=== PATIENT | female | born 2000 | race African-American/Black ===

== ENCOUNTER 2018-02-26 15:39 | Emergency (ER) | payer SELFPAY ==
--- NOTE | 2018-02-26 16:00 | ER Document Report ---
ED General - General Chief Complaint: Abdominal Pain Stated Complaint: ABDOMINAL CRAMPING Time Seen by Provider: 02/26/18 15:54 Mode of Arrival: Ambulatory Information source: Patient Notes: 17-year-old female presents with complaints of vaginal bleeding. Patient notes she has had vaginal bleeding for the past month on and off, she states that she used to be on oral control but then was switched to Depakote shot and since the Depakote has been having bleeding. Patient has not continued with the depression wishes to be placed back on oral contraceptives denies a history of migraine headaches TRAVEL OUTSIDE OF THE [place] IN LAST 30 DAYS: No - HPI Onset: Other - 1 month duration Onset/Duration: Intermittent Quality of pain: Cramping Severity: Mild Pain Level: 1 Associated symptoms: Other Exacerbated by: Denies Relieved by: Denies Similar symptoms previously: No Recently seen / treated by doctor: No - Related Data Allergies/Adverse Reactions: No Known Allergies Allergy (Verified 02/26/18 15:40) Past Medical History - Social History Smoking Status: Never Smoker Cigarette use (# per day): No Chew tobacco use (# tins/day): No Smoking Education Provided: No Family History: CVA, DM, Hyperlipidemia, Hypertension, Malignancy GI Medical History: Reports: Hx Gastroesophageal Reflux Disease - Immunizations Immunizations up to date: Yes Hx Diphtheria, Pertussis, Tetanus Vaccination: Yes Review of Systems - Review of Systems Notes: REVIEW OF SYSTEMS: CONSTITUTIONAL : Denies fever, chills, or sweats. Denies recent illness. EENT: Denies eye, ear, throat, or mouth pain or symptoms. Denies nasal or sinus congestion or discharge. Denies throat, tongue, or mouth swelling or difficulty swallowing. CARDIOVASCULAR: Denies chest pain. Denies palpitations or racing or irregular heart beat. Denies ankle edema. RESPIRATORY: Denies cough, cold, or chest congestion. Denies shortness of breath, difficulty breathing, or wheezing. GASTROINTESTINAL: Denies abdominal pain or distention. Denies nausea, vomiting , or diarrhea. Denies blood in vomitus, stools, or per rectum. Denies black, tarry stools. Denies constipation. GENITOURINARY: Denies difficulty urinating, painful urination, burning, frequency, blood in urine, or discharge. FEMALE GENITOURINARY: Admits vaginal bleeding cramping MUSCULOSKELETAL: Denies back or neck pain or stiffness. Denies joint pain or swelling. SKIN: Denies rash, lesions or sores. HEMATOLOGIC : Denies easy bruising or bleeding. LYMPHATIC: Denies swollen, enlarged glands. NEUROLOGICAL: Denies confusion or altered mental status. Denies passing out or loss of consciousness. Denies dizziness or lightheadedness. Denies headache. Denies weakness or paralysis or loss of use of either side. Denies problems with gait or speech. Denies sensory loss, numbness, or tingling. Denies seizures. PSYCHIATRIC: Denies anxiety or stress. Denies depression, suicidal ideation, or homicidal ideation. ALL OTHER SYSTEMS REVIEWED AND NEGATIVE. PHYSICAL EXAMINATION: GENERAL: Well-appearing, well-nourished and in no acute distress. HEAD: Atraumatic, normocephalic. EYES: Pupils equal round and reactive to light, extraocular movements intact, conjunctiva are normal. ENT: Nares patent, oropharynx clear without exudates. Moist mucous membranes. NECK: Normal range of motion, supple without lymphadenopathy LUNGS: Breath sounds clear to auscultation bilaterally and equal. No wheezes rales or rhonchi. HEART: Regular rate and rhythm without murmurs ABDOMEN: Soft, nontender, nondistended abdomen. No guarding, no rebound. No masses appreciated. Female : deferred Musculoskeletal: Normal range of motion, no pitting or edema. No cyanosis. NEUROLOGICAL: Cranial nerves grossly intact. Normal speech, normal gait. Normal sensory, motor exams PSYCH: Normal mood, normal affect. SKIN: Warm, Dry, normal turgor, no rashes or lesions noted. Dictation was performed using [employer] voice recognition software Physical Exam - Vital signs Vitals: Temp Pulse Resp BP Pulse Ox 98.9 F 86 18 137/88 H 100 02/26/18 15:44 02/26/18 15:44 02/26/18 15:44 02/26/18 15:44 02/26/18 15:44 Course - Re-evaluation Re-evalutation: 02/26/18 16:57 Patient used to be on Aviane, I will place her back on her meds since she has done well on this, ua for hcg pending Patient instructed on risks and benefits of medications prescribed. Denies any concerns regarding such. 02/26/18 16:58 HCG was negative After performing a Medical Screening Examination, I estimate there is LOW risk for ACUTE APPENDICITIS, BOWEL OBSTRUCTION, ACUTE CHOLECYSTITIS, PERFORATED DIVERTICULITIS, INCARCERATED HERNIA, PANCREATITIS, PELVIC INFLAMMATORY DISEASE, PERFORATED ULCER, ECTOPIC , or TUBO-OVARIAN ABSCESS, thus I consider the discharge disposition reasonable. Also, there is no evidence or peritonitis , sepsis, or toxicity. I have reevaluated this patient multiple times and no significant life threatening changes are noted. The patient and I have discussed the diagnosis and risks, and we agree with discharging home with close follow-up with the understanding that symptoms and presentations can change. We also discussed returning to the Emergency Department immediately if new or worsening symptoms occur. We have discussed the symptoms which are most concerning (e.g., bloody stool, fever, changing or worsening pain, vomiting) that necessitate immediate return. - Vital Signs Vital signs: Temp Pulse Resp BP Pulse Ox 98.9 F 86 18 137/88 H 100 02/26/18 15:44 02/26/18 15:44 02/26/18 15:44 02/26/18 15:44 02/26/18 15:44 - Laboratory Laboratory results interpreted by me: 02/26/18 16:17 Urine Blood LARGE H Urine Urobilinogen 2.0 H Discharge - Discharge Clinical Impression: Vaginal bleeding Condition: Stable Disposition: HOME, SELF-CARE Instructions: Vaginal Bleeding ([facility]) Prescriptions: Levonorgestrel-Ethin Estradiol [Aviane-28 Tablet] 1 each PO DAILY 90 Days tablet Referrals: MARCELLE DOBSON MD [Primary Care Provider] - Follow up as needed [facility] [Provider Group] - Follow up tomorrow
[2018-02-26 16:53] LABS: APPEARANCE,URINE CLEAR; BILIRUBIN,URINE NEGATIVE (NEGATIVE); COLOR,URINE YELLOW; GLUCOSE, URINE NEGATIVE (NEGATIVE); KETONES,URINE NEGATIVE (NEGATIVE); LEUKOCYTE ESTERASE,URINE NEGATIVE (NEGATIVE); NITRITE,URINE NEGATIVE (NEGATIVE); PROTEIN,URINE NEGATIVE (NEGATIVE)
[2018-02-26 17:11] VITALS: BP 122/74
== END 2018-02-26 17:24 | disposition home or self-care (01) ==
LOC: ER 15:39
DX: N93.9 Abnormal uterine and vaginal bleeding, unspecified (principal); R10.9 Unspecified abdominal pain
CPT/HCPCS: 81001; 81025; 99284

== ENCOUNTER 2019-08-26 14:15 | Emergency (ER) | payer SELFPAY ==
--- NOTE | 2019-08-26 14:54 | ER Document Report ---
ED Medical Screen (RME) - General Chief Complaint: Neck Swelling Stated Complaint: NECK LUMP Time Seen by Provider: 08/26/19 14:49 Notes: Patient is a 19-year-old female presents the emergency department with swelling noted to the anterior aspect of her neck. Voices she noticed the swelling on Thursday. She is denying any pain or injury. Patient denies any history of thyroid problems. Patient is denying any respiratory distress. GENERAL: Alert, interacts well. No acute distress. NECK: Full range of motion. Supple. Trachea midline. Significant swelling noted to the right thyroid. LUNGS: Clear to auscultation bilaterally, no wheezes, rales, or rhonchi. No respiratory distress. I have greeted and performed a rapid initial assessment of this patient. A comprehensive ED assessment and evaluation of the patient, analysis of test results and completion of the medical decision making process will be conducted by additional ED providers. I have specifically instructed the patient or family members with the patient to immediately return to any nursing staff should anything change in the patient's condition or with their chief complaint. This medical record was dictated with voice recognizing software. There may be grammatical, syntax errors that are unintended. TRAVEL OUTSIDE OF THE [place] IN LAST 30 DAYS: No - Related Data Allergies/Adverse Reactions: No Known Allergies Allergy (Verified 02/26/18 15:40) Past Medical History - Social History Chew tobacco use (# tins/day): No Frequency of alcohol use: Social Drug Abuse: None Renal/ Medical History: Denies: Hx Peritoneal Dialysis GI Medical History: Reports: Hx Gastroesophageal Reflux Disease - Immunizations Immunizations up to date: Yes Hx Diphtheria, Pertussis, Tetanus Vaccination: Yes Physical Exam - Vital signs Vitals: Temp Pulse Resp BP Pulse Ox 97.8 F 80 20 144/86 H 92 08/26/19 14:19 08/26/19 14:19 08/26/19 14:19 08/26/19 14:19 08/26/19 14:19 Course - Vital Signs Vital signs: Temp Pulse Resp BP Pulse Ox 97.8 F 80 20 144/86 H 92 08/26/19 14:19 08/26/19 14:19 08/26/19 14:19 08/26/19 14:19 08/26/19 14:19
[2019-08-26 16:00] LABS: FREE T3 3.54 pg/mL (2.77-5.27); FREE T4 (FREE THYROXINE) 0.86 ng/dL (0.78-2.19)
[2019-08-26 16:14] LABS: THYROID STIMULATING HORMONE 0.74 uIU/mL (0.47-4.68)
--- NOTE | 2019-08-26 16:49 | RADIOLOGY REPORT (SQ) ---
EXAM DESCRIPTION: U/S THYROID/SFT TISS HD NECK COMPLETED DATE/TIME: 08/26/2019 4:28 pm REASON FOR STUDY: swelling right of thyroid COMPARISON: None. TECHNIQUE: Dynamic and static martinez-scale images acquired of the thyroid gland. Selected additional c olor/power Doppler images recorded. All images stored to PACS. LIMITATIONS: None. FINDINGS: RIGHT LOBE: The right lobe of the thyroid gland measures 3.7 x 2.3 x 3.0 cm, normal size. A complex multi-septated 3.3 x 1.8 x 2.7 cm nodule occupies a large part of the right lobe of the t hyroid gland. Increased vascularity within the nodule and surrounding the nodule. LEFT LOBE: The left lobe of the thyroid gland measures 3.8 x 1.3 x 2.2 cm, normal size. A complex h ypoechoic septated nodule nodule measures 1.7 x 1.1 x 1.0 cm. ISTHMUS: The isthmus measures 2.8 mm in AP diameter, within the upper limits of normal size. Homoge neous echotexture. No cystic or solid masses. OTHER: No other significant finding. IMPRESSION: 1. A large complex dominant nodule in the right lobe of the thyroid gland as above. Co rrelation suggested. 2. Dominant complex nodule in the left lobe of the thyroid gland. Please see comments below. COMMENT: RECOMMENDATIONS FOR THYROID NODULES 1 CM OR LARGER Solitary nodules: Microcalcifications - FNA if 1 cm or greater. Solid or coarse calcification - FNA if 1.5 cm or greater. Mixed Solid/Cystic or Cystic with Mural Nodule - FNA if 2 cm or greater. None of the above but substantial growth since previous - FNA. Cystic with none of the above features and no significant growth - no FNA. Multiple nodules: Use above criteria for selection of nodules to FNA/biopsy. Biopsy probably not necessary in enlarged gland with multiple nodules of similar appearance. Abnormal lymph nodes - FNA/biopsy. Reference: Management of Thyroid Nodules Detected at [place]: Society of Radiologists in Ultrasound Consensus Stateme nt. Radiology 2005; 237:794-800 TECHNICAL DOCUMENTATION: JOB ID: [id number] [employer]- All Rights Reserved Reading location - IP/workstation name: [email or web address]
--- NOTE | 2019-08-26 18:23 | ER Document Report ---
HPI - HPI Time Seen by Provider: 08/26/19 14:49 Pain Level: Denies Notes: Patient is a 19-year-old female with no significant past medical history presents complaining of noticing a nodule to her lower anterior neck that is been present for the past couple days that she is aware of. She is able to eat and drink without difficulty. She has not had any trouble drooling or with hoarseness. Denies drug allergies. She has no other concerns or complaints. No history of thyroid disease in the past. She does not have any significant pain associated. Denies any headache, fever, neck pain, URI, sore throat, chest pain, palpitations, syncope, cough, shortness of breath, wheeze, dyspnea, abdominal pain, nausea/vomiting/diarrhea, urinary retention, dysuria, hematuria, or rash. - ROS Systems Reviewed and Negative: Yes All other systems reviewed and negative - REPRODUCTIVE Reproductive: DENIES: : Past Medical History - Social History Smoking Status: Never Smoker Chew tobacco use (# tins/day): No Frequency of alcohol use: Social Drug Abuse: None Family History: CVA, DM, Hyperlipidemia, Hypertension, Malignancy Patient has suicidal ideation: No Patient has homicidal ideation: No Renal/ Medical History: Denies: Hx Peritoneal Dialysis GI Medical History: Reports: Hx Gastroesophageal Reflux Disease - Immunizations Immunizations up to date: Yes Hx Diphtheria, Pertussis, Tetanus Vaccination: Yes Vertical Provider Document - CONSTITUTIONAL Agree With Documented VS: Yes Notes: PHYSICAL EXAMINATION: GENERAL: Well-appearing, well-nourished and in no acute distress. HEAD: Atraumatic, normocephalic. EYES: Pupils equal round and reactive to light, extraocular movements intact, sclera anicteric, conjunctiva are normal. ENT: Nares patent and without discharge. oropharynx clear without exudates. No tonsilar hypertrophy or erythema. Moist mucous membranes. No sinus tenderness. NECK: Normal range of motion. There is a cystic mass most notable to the rt thyroid area and a smaller to the left. Somewhat moveable. LUNGS: Breath sounds clear to auscultation bilaterally and equal. No wheezes rales or rhonchi. HEART: Regular rate and rhythm without murmurs, rubs, gallops. Musculoskeletal: FROM to passive/active. Strength 5+/5. Extremities: No cyanosis, clubbing, or edema b/l. Peripheral pulses 2+. Capillary refill less than 3 seconds. NEUROLOGICAL: Cranial nerves grossly intact. Normal speech, normal gait. PSYCH: Normal mood, normal affect. SKIN: Warm, Dry, normal turgor, no rashes or lesions noted. - INFECTION CONTROL TRAVEL OUTSIDE OF THE [place] IN LAST 30 DAYS: No Course - Re-evaluation Re-evalutation: 08/26/19 18:23 I did review with Dr. Loving who is in agreement with disposition and plan. Patient is an afebrile, well-hydrated, 19-year-old female who presents with complex multiseptated dominant nodule right thyroid as well as another smaller nodule to the left thyroid. Vitals are otherwise acceptable without significant tachycardia, tachypnea, hypoxia. PE is otherwise unremarkable. Patient is nontoxic-appearing and is tolerating p.o. without difficulty. She has not had any hoarseness or drooling. There is no evidence of airway compromise. Low suspicion for any meningitis, sepsis, peritonsillar/pharyngeal abscess, Darron's, or other emergent systemic condition at this time. Patient is aware this condition can change from initial presentation and she needs to monitor symptoms closely. I did review that she needs to have close follow-up for this issue as worse case scenario is metastasis/cancer. Conservative measures otherwise for symptoms. Recheck with your PCM in 2-3 days. Schedule an appointment with ENT/general surgery for probable fine-needle aspiration. Return to the ED with any worsening/concerning symptoms otherwise as reviewed in discharge. Patient is in agreement. - Vital Signs Vital signs: Temp Pulse Resp BP Pulse Ox 97.8 F 80 20 144/86 H 92 08/26/19 14:19 08/26/19 14:19 08/26/19 14:19 08/26/19 14:19 08/26/19 14:19 Discharge - Discharge Clinical Impression: Multiple thyroid nodules Condition: Stable Disposition: HOME, SELF-CARE Additional Instructions: As reviewed, thyroid nodules can be benign or could be cancerous which is why it is important to follow-up. You may be looking at getting a fine-needle aspiration performed by either the ENT provider or general surgeon. Maintain adequate fluid intake tylenol/ibuprofen as needed Monitor closely F/u: with your PCM in 2-3 days for a recheck Schedule consult with ENT/General surgeon for further evaluation and management* Return to the ED with any fever, Headaches, worsening pain, chest pain, neck pain/stiffness, shortness of breath, cough, drooling, hoarseness, trouble swallowing/breathing, abdominal pain, n/v/d, rash, or worsening/concerning symptoms otherwise. Forms: Elevated Blood Pressure Referrals: KARISHMA PINO DO [ASSOCIATE] - Follow up as needed WILLY MANZANO MD [ACTIVE STAFF] - Follow up as needed
[2019-08-26 19:15] VITALS: BP 128/70
== END 2019-08-26 18:40 | disposition home or self-care (01) ==
LOC: ER 14:15
DX: E04.2 Nontoxic multinodular goiter (principal)
CPT/HCPCS: 36415; 76536; 84439; 84443; 84481; 99284